=== PATIENT | female | born 1990 | race Caucasian/White ===

== ENCOUNTER 2016-09-27 20:57 | Emergency (ER) | payer BC ==
--- NOTE | 2016-09-27 21:12 | EDM.PDOC ---
ED HPI GENERAL MEDICAL PROBLEM - General Chief Complaint: ENT Problem Stated Complaint: SORE THROAT Time Seen by Provider: 09/27/16 21:02 - History of Present Illness INITIAL COMMENTS - FREE TEXT/NARRATIVE: HISTORY AND PHYSICAL: History of present illness: The patient is a healthy 26-year-old female who presents with a 2 day history of a sore throat. She says that her child has been ill and she is concerned she may have gotten something from the child. She has not had fevers vomiting or diarrhea but has had some nausea. She doesn't have any cough runny nose ear pain but feels like her ear is a somewhat plugged up. She is able to eat and drink and speak but says that there is some discomfort with that. She's been hydrating. She has no neck pain or swollen glands. Review of systems: As per history of present illness and below otherwise all systems reviewed and negative. Past medical history: As per history of present illness and as reviewed below otherwise noncontributory. Surgical history: As per history of present illness and as reviewed below otherwise noncontributory. Social history: No reported history of drug or alcohol abuse. Family history: As per history of present illness and as reviewed below otherwise noncontributory. Physical exam: Gen.: Well-developed well-nourished female who is speaking clearly without hoarse or muffled voice and vital signs of the note by me HEENT: Atraumatic, normocephalic, pupils reactive, negative for conjunctival pallor or scleral icterus, mucous membranes moist, throat clear, neck supple, nontender, trachea midline. There Is no cervical adenopathy or nuchal rigidity. The tonsils are mildly enlarged with some erythema but no exudates are seen and the uvula is midline. TMs show dullness on the right without bulging or redness and a normal TM on the left. Lungs: Clear to auscultation, breath sounds equal bilaterally, chest nontender. Heart: S1S2, regular rate and rhythm no overt murmurs Abdomen: Soft, nondistended, nontender. NABS. Negative for costovertebral tenderness. Pelvis: Deferred Genitourinary: Deferred. Rectal: Deferred. Extremities: Atraumatic, negative for cords or calf pain. Neurovascular unremarkable. Neuro: Awake, alert, oriented. Cranial nerves II through XII unremarkable. Cerebellum unremarkable. Motor and sensory unremarkable throughout. Exam nonfocal. Diagnostics: Rapid strep Therapeutics: Impression: Strep pharyngitis Definitive disposition and diagnosis as appropriate pending reevaluation and review of above. Head Pain Score (Numeric/FACES): 6 - Related Data Allergies Allergy/AdvReac Type Severity Reaction Status Date / Time No Known Allergies Allergy Verified 06/22/14 06:50 Home Meds: Home Meds . [No Known Home Meds] 11/03/14 [History] Past Medical History - Past Health History Medical/Surgical History: Denies Medical/Surgical History - Past Surgical History Other HEENT Surgeries/Procedures: wisdom teeth removed Social & Family History - Tobacco Use Smoking Status *Q: Former Smoker Years of Tobacco use: 7 Used Tobacco, but Quit: No Month Tobacco Last Used: september 2013 Second Hand Smoke Exposure: No - Alcohol Use Days Per Week of Alcohol Use: 0 - Recreational Drug Use Recreational Drug Use: No Drug Use in Last 12 Months: No ED ROS GENERAL - Review of Systems Review Of Systems: ROS reveals no pertinent complaints other than HPI. ED EXAM, GENERAL - Physical Exam Exam: See Below (see Dictation) Course - Vital Signs Last Recorded V/S: Last Vital Signs Temp 37.4 C 09/27/16 21:20 Pulse 98 09/27/16 21:20 Resp 16 09/27/16 21:20 BP 114/76 09/27/16 21:20 Pulse Ox 98 09/27/16 21:20 Departure - Departure Time of Disposition: 22:01 Disposition: Home, Self-Care 01 Condition: Good Clinical Impression: Strep pharyngitis - Discharge Information Forms: ED Department Discharge Additional Instructions: The following information is given to patients seen in the emergency department who are being discharged to home. This information is to outline your options for follow-up care. We provide all patients seen in our emergency department with a follow-up referral. The need for follow-up, as well as the timing and circumstances, are variable depending upon the specifics of your emergency department visit. If you don't have a primary care physician on staff, we will provide you with a referral. We always advise you to contact your personal physician following an emergency department visit to inform them of the circumstance of the visit and for follow-up with them and/or the need for any referrals to a consulting specialist. The emergency department will also refer you to a specialist when appropriate. This referral assures that you have the opportunity for followup care with a specialist. All of these measure are taken in an effort to provide you with optimal care, which includes your followup. Under all circumstances we always encourage you to contact your private physician who remains a resource for coordinating your care. When calling for followup care, please make the office aware that this follow-up is from your recent emergency room visit. If for any reason you are refused follow-up, please contact the [facility] emergency department at and ask to speak to the emergency department charge nurse. [facility] Primary care- Internal Medicine and Family [address] [id number] Please take antibiotics as directed until they are finished. Push hydration and use [id number] medications for pain and fevers. Call and follow-up in the clinic for reevaluation and further care and return here as needed and as discussed You have been prescribed amoxicillin from [facility]
[2016-09-27 21:25] VITALS: BP 114/76
== END 2016-09-27 22:35 | disposition home or self-care (01) ==
LOC: MW.ED 20:57
DX: J02.0 Streptococcal pharyngitis (principal); Z87.891 Personal history of nicotine dependence
CPT/HCPCS: 87880; 99282; 99283

== ENCOUNTER 2017-06-18 02:36 | Inpatient (IN) | payer BC ==
[2017-06-18] MEDS ORDERED: Tranexamic Acid 1,000 MG in Sodium Chloride 0.9% 100 ML IV PRN (02:37)
[2017-06-18] MEDS ORDERED: Misoprostol 200 MCG Tab PO PRN (02:37)
[2017-06-18] MEDS ORDERED: Carboprost Tromethamine 250 MCG/1 ML Amp IM PRN (02:37)
[2017-06-18] MEDS ORDERED: Sodium Chloride 0.9% 10 ML Syringe FLUSH PRN (02:37)
[2017-06-18] MEDS ORDERED: Butorphanol 1 MG/ML SDV IVPUSH PRN (02:37)
[2017-06-18] MEDS ORDERED: Nalbuphine 10 MG/1 ML Vial IVPUSH PRN (02:37)
[2017-06-18] MEDS ORDERED: Methylergonovine 0.2 MG/1 ML Amp IM PRN ×2 (02:37→14:15)
[2017-06-18] MEDS ORDERED: Lidocaine 1% 50 ML MDV INJECT PRN (02:37)
[2017-06-18] MEDS ORDERED: Water For Irrigation,Sterile 1,000 ML Container IRR PRN (02:37)
[2017-06-18] MEDS ORDERED: Sodium Chloride 0.9% 2.5 ML Syringe FLUSH PRN (02:37)
[2017-06-18] MEDS ORDERED: Oxytocin/0.9 % Sodium Chloride 30 UNIT/500 ML BAG IV SCH ×2 (02:45→12:15)
[2017-06-18] MEDS: Lactated Ringers 1,000 ML IV SCH ×2 (02:50→04:15)
--- NOTE | 2017-06-18 04:05 | PCM.PREANE ---
Preanesthetic Assessment - Anesthesia/Transfusion/Family Hx Anesthesia History: Prior Anesthesia Without Reaction Family History of Anesthesia Reaction: No - Physical Assessment Height: 1.65 m Weight: 80.739 kg - Lab Values: Laboratory Last Values WBC 11.70 K/uL (4.0-11.0) H 06/18/17 02:46 RBC 4.33 M/uL (4.30-5.90) 06/18/17 02:46 Hgb 12.6 g/dL (12.0-16.0) 06/18/17 02:46 Hct 37.8 % (36.0-46.0) 06/18/17 02:46 MCV 87.3 fL (80.0-98.0) 06/18/17 02:46 MCH 29.1 pg (27.0-32.0) 06/18/17 02:46 MCHC 33.3 g/dL (31.0-37.0) 06/18/17 02:46 RDW Std Deviation 39.7 fl (28.0-62.0) 06/18/17 02:46 RDW Coeff of Niki 13 % (11.0-15.0) 06/18/17 02:46 Plt Count 233 K/uL (150-400) 06/18/17 02:46 MPV 10.10 fL (7.40-12.00) 06/18/17 02:46 INR 0.90 06/18/17 02:46 Fibrinogen 454 mg/dL (215-411) H 06/18/17 02:46 Blood Type O POSITIVE 06/18/17 02:46 Antibody Screen NEGATIVE 06/18/17 02:46 - Allergies Allergies/Adverse Reactions: Allergies Allergy/AdvReac Type Severity Reaction Status Date / Time No Known Allergies Allergy Verified 04/15/17 06:42 - Acknowledgements Anesthesia Type Planned: Epidural Pt an Appropriate Candidate for the Planned Anesthesia: Yes Alternatives and Risks of Anesthesia Discussed w Pt/Guardian: Yes Pt/Guardian Understands and Agrees with Anesthesia Plan: Yes PreAnesthesia Questionnaire - Past Health History Medical/Surgical History: Denies Medical/Surgical History 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 [No Known Home Meds] 11/03/14 [History] - CURRENT (IN HOUSE) MEDS Current Meds: Current Medications Butorphanol Tartrate (Stadol) 1 mg IVPUSH Q1H PRN PRN Reason: Pain Carboprost Tromethamine (Hemabate Ds) 250 mcg IM ASDIRECTED PRN PRN Reason: Post Hemorrhage Lactated Ringer's (Ringers, Lactated) 1,000 mls @ 150 mls/hr IV ASDIRECTED [facility] Last Admin: 06/18/17 02:50 Dose: 150 mls/hr Oxytocin/Sodium Chloride (Oxytocin 30 Unit/500 Ml-Ns) 30 unit in 500 mls @ 999 mls/hr IV ASDIRECTED [facility] Tranexamic Acid 1,000 mg/ (Sodium Chloride) 110 mls @ 660 mls/hr IV ONETIME PRN PRN Reason: Bleeding Lidocaine HCl (Xylocaine 1%) 50 ml INJECT .ONCE PRN PRN Reason: Laceration repair Methylergonovine Maleate (Methergine) 0.2 mg IM ASDIRECTED PRN PRN Reason: Post Hemorrhage Misoprostol (Cytotec) 200 mcg PO .ONCE PRN PRN Reason: Post Hemorrhage Nalbuphine HCl (Nubain) 10 mg IVPUSH Q1H PRN PRN Reason: Pain (severe 7-10) Sodium Chloride (Saline Flush) 10 ml FLUSH ASDIRECTED PRN PRN Reason: Keep Vein Open Sodium Chloride (Saline Flush) 2.5 ml FLUSH ASDIRECTED PRN PRN Reason: Keep Vein Open Sterile Water (Sterile Water For Irrigation) 1,000 ml IRR ASDIRECTED PRN PRN Reason: delivery Discontinued Medications Fentanyl/Bupivacaine HCl ([id number]-Sb 2 Mcg/Ml-0.125%) Confirm Administered Dose 100 mls @ as directed APURVA GOMEZK-MED ONE Stop: 06/18/17 03:28
--- NOTE | 2017-06-18 04:10 | PCM.PRNOTE ---
- Free Text/Narrative Note: Anes Note Patient Requests Epidural for L&D. Risks and methods were discussed. Sitting Position. Level L3-4 Midline Approach. Bet prep X 3. Sterile Drape Applied/ Local 1 lido. 1 X 3 7/8 tuohy needle. Single attempt with ease, using LUIS MIGUEL technique. Cath threaded 3 cm with ease. Sterile dressing applied. test 3 cc 1.5 lido with epi neg. Load 10 cc pump solution in slow divided doses. Pump started at 8 cc/hr with 6 cc q 20 min prn bolus. Patient reports excellent analgesia. Luis Felipe Dior CRNA
[2017-06-18] MEDS ORDERED: Terbutaline 1 MG/ML SDV SUBCUT PRN (12:07)
[2017-06-18] MEDS ORDERED: Docusate Sodium 100 MG Cap PO PRN (14:15)
[2017-06-18] MEDS ORDERED: Bisacodyl 10 MG Supp RECTAL PRN (14:15)
[2017-06-18] MEDS ORDERED: Witch Hazel Medicated Pads 40/Jar TOP PRN (14:15)
[2017-06-18] MEDS ORDERED: Benzocaine/Menthol 20%-0.5% Spray 78 GM Cannister TOP PRN (14:15)
[2017-06-18] MEDS ORDERED: Lanolin 100% Cream 7 GM Tube TOP PRN (14:15)
[2017-06-18] MEDS ORDERED: Acetaminophen 500 MG Tab PO PRN ×2 (14:15)
[2017-06-18] MEDS ORDERED: Ibuprofen 400 MG Tab PO PRN (14:15)
[2017-06-18] MEDS ORDERED: oxyCODONE 5 MG Tab PO PRN (14:15)
[2017-06-18] MEDS ORDERED: hydrOXYzine Pamoate 25 MG Cap PO PRN (14:44)
[2017-06-18] MEDS: Ibuprofen 800 MG Tab PO PRN (19:33)
--- NOTE | 2017-06-18 20:20 | OR ---
SURGEON: Nafisa Vega M.D. DATE OF PROCEDURE: 06/18/2017 DELIVERY NOTE PREOPERATIVE DIAGNOSIS: 39-3/7th weeks' intrauterine , dysfunctional labor. POSTOPERATIVE DIAGNOSIS: 39-3/7th weeks' intrauterine , dysfunctional labor, and vaginal polyp PROCEDURE PERFORMED: Term Spontaneous Vaginal Delivery; Vaginal polypectomy. PROCUREMENT INTERNSHIP: AMBER Rodrigues. ANESTHESIA: Epidural. ESTIMATED BLOOD LOSS: Less than 300 mL. FINDINGS: Live-born male, score 9 and 9. Weight is pending at the time of dictation. Full delivery of the anterior shoulder, with shoulder dystocia maneuvers performed, but less than 1 minute delay in delivery. COMPLICATIONS: None known. DISPOSITION: Stable to recovery. BRIEF HISTORY: This is a 26-year-old female, G3, P2-0-0-2. She presents at 39 and 3/7th weeks' gestation, calling through the answering service, expressing that she has blood running down her legs and was told to call an ambulance. She presented to the emergency room. I met her at the hospital. She had a 3 x 5 cm area on her pad of bright red blood. She had an irregular contraction pattern. She had normal coagulation studies. She had category 1 heart tones. She admitted to taking castor oil that evening. Due to the bleeding, she was admitted. She was initially 3-4 cm dilated. Over the following 6 hours, she was observed with continued normal heart tones. Contraction pattern becoming more regular every 3-5 minutes and then every 5-8 minutes and no further bleeding observed. Ultrasound did not show any sign of abruption. She was 4 cm, 80%, -2 station and decision was made to proceed with rupture of membranes. Artificial rupture of membranes was performed with clear fluid noted. She was known to be group B strep negative. She continued with category 1 heart tones. Prior to rupture of membranes, she had received an epidural for pain control and she had slow progress over the next 2 to 3 hours to 5 cm. Therefore decision was made to proceed with Pitocin augmentation. Shortly thereafter, she progressed to complete. DESCRIPTION OF PROCEDURE: With the patient in dorsal lithotomy position, she pushed over a 12-minute time period to a 5+ station, at which time the head was delivered spontaneously and atraumatically over the perineum with support. Turtling was noted. The head was in the direct occiput anterior position. Rotated slightly to the left occiput anterior position. The shoulders did not easily deliver. Therefore, the patient was placed in the supine position. Suprapubic pressure was performed and a hand was used to rotate the anterior shoulder forward and delivered the anterior shoulder then posteriorly with subsequent delivery of the 's other shoulder and body without any difficulty. Again, the time from the delivery of the head to the delivery of shoulder was less than 1 minute. The infant was bulb suctioned by nose and mouth. The cord was clamped x2 and cut, and the was handed to the mother in the presence of the nurse attending delivery. The is a liveborn male, score 9 and 9. Weight is pending at the time of dictation. Cord blood was collected for venous cord blood sampling as well as routine cord blood sampling. Pitocin was initiated after delivery of the to assist with delivery of the placenta which was delivered spontaneously. Schultze intact with 3 vessels. Upon inspection the pelvis and perineum, there were no periurethral, vaginal sidewall, cervical, rectal, or perineal lacerations. There was redundant vaginal tissue measuring 1 x 2 cm protruding beyond the introitus. The patient requested that this be removed as she has been previously aware of it and since she has an epidural she requests that it be removed at this time. I confirmed her desire and approval, and I did elevate it, confirmed that she had good anesthesia. It was cut at the base and 2 [id number] sutures were placed for hemostasis. This was sent as a vaginal polyp specimen to Pathology. Due to the bleeding that she had, the placenta was also sent to Pathology; however, on gross examination, there was no evidence of abruption and the placenta did appear completely intact. Final sponge, needle, and instrument count were correct. There were no known complications. and mother remained in LDRP in good condition. LAISHA / GATO /[id number] MTDWojciech
--- NOTE | 2017-06-19 00:34 | PCM48HPAN ---
Post Anesthesia Note - EVALUATION WITHIN 48HRS OF ANESTHETIC Vital Signs in Normal Range: Yes Patient Participated in Evaluation: Yes Respiratory Function Stable: Yes Airway Patent: Yes Cardiovascular Function Stable: Yes Hydration Status Stable: Yes Pain Control Satisfactory: Yes Nausea and Vomiting Control Satisfactory: Yes Mental Status Recovered: Yes Resp Rate: 14
[2017-06-19] MEDS: Ibuprofen 800 MG Tab PO PRN ×2 (02:22→11:09)
[2017-06-19 07:35] VITALS: BP 111/72
--- NOTE | 2017-06-19 08:08 | PCM.PNPP ---
<Shawna Sommers - Last Filed: 06/19/17 08:43> - General Info Date of Service: 06/19/17 Admission Dx/Problem (Free Text): 39/2 dysfunctional labor. Full delivery of anterior shoulder, with shoulder dystocia maneuvers performed, but less than 1 min delay in delivery. Subjective Update: Patient is doing well. Pain is well controlled with medications. . Lochia - WNL. Tolerated food with no n/v. Urinating. No bowel movement or flatus. Ambulating. Anticipate discharge today. Functional Status: Reports: Pain Controlled, Tolerating Diet, Ambulating - Review of Systems General: Denies: Fever, Chills HEENT: Denies: Headaches Pulmonary: Denies: Shortness of Breath, Pleuritic Chest Pain Cardiovascular: Denies: Chest Pain, Palpitations, Dyspnea on Exertion, Lightheadedness Gastrointestinal: Denies: Flatus, Nausea, Vomiting - General Info Date of Service: 06/19/17 - Patient Data Vital Signs - Most Recent: Last Vital Signs Temp 36.8 C 06/19/17 07:34 Pulse 59 L 06/19/17 07:34 Resp 14 06/19/17 07:34 BP 111/72 06/19/17 07:34 Pulse Ox 97 06/19/17 07:34 Weight - Most Recent: 80.739 kg Lab Results - Last 24 Hours: Laboratory Results - last 24 hr 06/18/17 06/19/17 Range/Units 13:52 05:47 Hgb 11.4 L (12.0-16.0) g/dL Hct 34.7 L (36.0-46.0) % Cord VBG pH 7.384 (7.25-7.45) Cord VBG Base Excess -3 (-10--2) Med Orders - Current: Current Medications Acetaminophen (Tylenol Extra Strength) 500 mg PO Q4H PRN PRN Reason: Pain Acetaminophen (Tylenol Extra Strength) 1,000 mg PO Q4H PRN PRN Reason: Pain Benzocaine/Menthol (Dermoplast Pain Relief 20%-0.5% [place]) 78 gm TOP ASDIRECTED PRN PRN Reason: Perineal Comfort Measure Bisacodyl (Dulcolax) 10 mg RECTAL .ONCE PRN PRN Reason: Constipation Docusate Sodium (Colace) 100 mg PO BID PRN PRN Reason: Constipation Emollient Ointment (Lansinoh Hpa) 0 gm TOP ASDIRECTED PRN PRN Reason: Sore Nipples Hydroxyzine Pamoate (Vistaril) 25 mg PO BEDTIME PRN PRN Reason: Insomnia Ibuprofen (Motrin) 400 mg PO Q4H PRN PRN Reason: Pain Ibuprofen (Motrin) 800 mg PO Q6H PRN PRN Reason: Pain Last Admin: 06/19/17 02:22 Dose: 800 mg Methylergonovine Maleate (Methergine) 0.2 mg IM .ONCE PRN PRN Reason: Excessive Vaginal Bleeding Oxycodone HCl (Oxycodone) 5 mg PO Q2H PRN PRN Reason: Pain Last Admin: 06/19/17 02:22 Dose: 5 mg Witch Allyson (Tucks) 1 pad TOP ASDIRECTED PRN PRN Reason: comfort care Discontinued Medications Butorphanol Tartrate (Stadol) 1 mg IVPUSH Q1H PRN PRN Reason: Pain Carboprost Tromethamine (Hemabate Ds) 250 mcg IM ASDIRECTED PRN PRN Reason: Post Hemorrhage Lactated Ringer's (Ringers, Lactated) 1,000 mls @ 150 mls/hr IV ASDIRECTED COUNTS INCLUDE 234 BEDS AT THE [facility] Last Admin: 06/18/17 04:15 Dose: 150 mls/hr Oxytocin/Sodium Chloride (Oxytocin 30 Unit/500 Ml-Ns) 30 unit in 500 mls @ 999 mls/hr IV ASDIRECTED COUNTS INCLUDE 234 BEDS AT THE [facility] Tranexamic Acid 1,000 mg/ (Sodium Chloride) 110 mls @ 660 mls/hr IV ONETIME PRN PRN Reason: Bleeding Fentanyl/Bupivacaine HCl (Mhxnmjyx-Chehe-Qy 2 Mcg/Ml-0.125%) Confirm Administered Dose 100 mls @ as directed EP .STK-MED ONE Stop: 06/18/17 03:28 Oxytocin/Sodium Chloride (Oxytocin 30 Unit/500 Ml-Ns) 30 unit in 500 mls @ 2 mls/hr IV TITRATE COUNTS INCLUDE 234 BEDS AT THE [facility]; Protocol Last Titration: 06/18/17 13:55 Dose: 500 munits/min, 500 mls/hr Lidocaine HCl (Xylocaine 1%) 50 ml INJECT .ONCE PRN PRN Reason: Laceration repair Methylergonovine Maleate (Methergine) 0.2 mg IM ASDIRECTED PRN PRN Reason: Post Hemorrhage Misoprostol (Cytotec) 200 mcg PO .ONCE PRN PRN Reason: Post Hemorrhage Nalbuphine HCl (Nubain) 10 mg IVPUSH Q1H PRN PRN Reason: Pain (severe 7-10) Sodium Chloride (Saline Flush) 10 ml FLUSH ASDIRECTED PRN PRN Reason: Keep Vein Open Sodium Chloride (Saline Flush) 2.5 ml FLUSH ASDIRECTED PRN PRN Reason: Keep Vein Open Sterile Water (Sterile Water For Irrigation) 1,000 ml IRR ASDIRECTED PRN PRN Reason: delivery Terbutaline Sulfate (Brethine) 0.25 mg SUBCUT ASDIRECTED PRN PRN Reason: Tacysystole - Interaction Disposition, : Delight in Room with Family Infant Interaction: Holding Infant Feeding: Attempted ; Nursed Fair/Poor, Breastfed ; Nursed Well Support Person: - Recovery Exam Fundal Tone: Firm Fundal Level: 2 Fingerbreadths Below Umbilicus Fundal Placement: Midline Lochia Amount: Scant Lochia Color: Rubra/Red Episiotomy/Laceration: None Bladder Status: Voiding Urinary Elimination: Voided - Exam General: Alert, Oriented, No Acute Distress Lungs: Clear to Auscultation, Normal Respiratory Effort Cardiovascular: Regular Rate, Regular Rhythm GI/Abdominal Exam: Soft, Non-Tender Extremities: Pedal Edema (Trace) Skin: Warm, Dry Psy/Mental Status: Alert - Problem List & Annotations (1) Vaginal delivery SNOMED Code(s): 963412135 Code(s): O80 - ENCOUNTER FOR FULL-TERM UNCOMPLICATED DELIVERY Status: Acute Current Visit: No - Assessment Assessment:: 39/3 dysfunctional labor. PPD #1. Stable. Discharge today. - Plan Plan:: Reviewed discharge instructions. Continue PNV while . Pelvic rest for 6 weeks. Call if fever greater than 101 or bleeding through a heavy pad in an hour. Has a history of depression - reviewed post- depression symptoms. Follow-up appointment in 6 weeks. <Nafisa Vega - Last Filed: 06/19/17 11:01> - Patient Data Vital Signs - Most Recent: Last Vital Signs Temp 36.8 C 06/19/17 07:34 Pulse 59 L 06/19/17 07:34 Resp 14 06/19/17 07:34 BP 111/72 06/19/17 07:34 Pulse Ox 97 06/19/17 07:34 Lab Results - Last 24 Hours: Laboratory Results - last 24 hr 06/18/17 06/19/17 Range/Units 13:52 05:47 Hgb 11.4 L (12.0-16.0) g/dL Hct 34.7 L (36.0-46.0) % Cord VBG pH 7.384 (7.25-7.45) Cord VBG Base Excess -3 (-10--2) Med Orders - Current: Current Medications Acetaminophen (Tylenol Extra Strength) 500 mg PO Q4H PRN PRN Reason: Pain Acetaminophen (Tylenol Extra Strength) 1,000 mg PO Q4H PRN PRN Reason: Pain Benzocaine/Menthol (Dermoplast Pain Relief 20%-0.5% [place]) 78 gm TOP ASDIRECTED PRN PRN Reason: Perineal Comfort Measure Bisacodyl (Dulcolax) 10 mg RECTAL .ONCE PRN PRN Reason: Constipation Docusate Sodium (Colace) 100 mg PO BID PRN PRN Reason: Constipation Emollient Ointment (Lansinoh Hpa) 0 gm TOP ASDIRECTED PRN PRN Reason: Sore Nipples Hydroxyzine Pamoate (Vistaril) 25 mg PO BEDTIME PRN PRN Reason: Insomnia Ibuprofen (Motrin) 400 mg PO Q4H PRN PRN Reason: Pain Ibuprofen (Motrin) 800 mg PO Q6H PRN PRN Reason: Pain Last Admin: 06/19/17 02:22 Dose: 800 mg Methylergonovine Maleate (Methergine) 0.2 mg IM .ONCE PRN PRN Reason: Excessive Vaginal Bleeding Oxycodone HCl (Oxycodone) 5 mg PO Q2H PRN PRN Reason: Pain Last Admin: 06/19/17 02:22 Dose: 5 mg Witch Allyson (Tucks) 1 pad TOP ASDIRECTED PRN PRN Reason: comfort care Discontinued Medications Butorphanol Tartrate (Stadol) 1 mg IVPUSH Q1H PRN PRN Reason: Pain Carboprost Tromethamine (Hemabate Ds) 250 mcg IM ASDIRECTED PRN PRN Reason: Post Hemorrhage Lactated Ringer's (Ringers, Lactated) 1,000 mls @ 150 mls/hr IV ASDIRECTED COUNTS INCLUDE 234 BEDS AT THE [facility] Last Admin: 06/18/17 04:15 Dose: 150 mls/hr Oxytocin/Sodium Chloride (Oxytocin 30 Unit/500 Ml-Ns) 30 unit in 500 mls @ 999 mls/hr IV ASDIRECTED TELLO Tranexamic Acid 1,000 mg/ (Sodium Chloride) 110 mls @ 660 mls/hr IV ONETIME PRN PRN Reason: Bleeding Fentanyl/Bupivacaine HCl (Zmouilap-Efqyo-Uv 2 Mcg/Ml-0.125%) Confirm Administered Dose 100 mls @ as directed EP .STK-MED ONE Stop: 06/18/17 03:28 Oxytocin/Sodium Chloride (Oxytocin 30 Unit/500 Ml-Ns) 30 unit in 500 mls @ 2 mls/hr IV TITRATE TELLO; Protocol Last Titration: 06/18/17 13:55 Dose: 500 munits/min, 500 mls/hr Lidocaine HCl (Xylocaine 1%) 50 ml INJECT .ONCE PRN PRN Reason: Laceration repair Methylergonovine Maleate (Methergine) 0.2 mg IM ASDIRECTED PRN PRN Reason: Post Hemorrhage Misoprostol (Cytotec) 200 mcg PO .ONCE PRN PRN Reason: Post Hemorrhage Nalbuphine HCl (Nubain) 10 mg IVPUSH Q1H PRN PRN Reason: Pain (severe 7-10) Sodium Chloride (Saline Flush) 10 ml FLUSH ASDIRECTED PRN PRN Reason: Keep Vein Open Sodium Chloride (Saline Flush) 2.5 ml FLUSH ASDIRECTED PRN PRN Reason: Keep Vein Open Sterile Water (Sterile Water For Irrigation) 1,000 ml IRR ASDIRECTED PRN PRN Reason: delivery Terbutaline Sulfate (Brethine) 0.25 mg SUBCUT ASDIRECTED PRN PRN Reason: Tacysystole - Problem List Review Problem List Initiated/Reviewed/Updated: Yes - My Orders Last 24 Hours: My Active Orders 06/18/17 12:07 Bedrest Bathroom Privileges [RC] ASDIRECTED Communication Order [RC] ASDIRECTED Communication Order [RC] ASDIRECTED Notify Provider [RC] PRN Oxygen Therapy [RC] ASDIRECTED Vaginal Exam [RC] PRN Vital Signs [RC] PER UNIT ROUTINE 06/18/17 14:15 Patient Status [ADT] Routine May Shower [RC] ASDIRECTED Up ad Lea [RC] ASDIRECTED Vital Signs [RC] PER UNIT ROUTINE Acetaminophen [Tylenol Extra Strength] 1,000 mg PO Q4H PRN Acetaminophen [Tylenol Extra Strength] 500 mg PO Q4H PRN Benzocaine/Menthol [Dermoplast Pain Relief 20%-0.5% [place]] 78 gm TOP ASDIRECTED PRN Bisacodyl [Dulcolax] 10 mg RECTAL .ONCE PRN Docusate Sodium [Colace] 100 mg PO BID PRN Ibuprofen [Motrin] 400 mg PO Q4H PRN Ibuprofen [Motrin] 800 mg PO Q6H PRN Lanolin [Lansinoh HPA] See Dose Instructions TOP ASDIRECTED PRN Methylergonovine [Methergine] 0.2 mg IM .ONCE PRN Witch Allyson [Tucks] 1 pad TOP ASDIRECTED PRN oxyCODONE 5 mg PO Q2H PRN Assess Lochia [WOMSER] Per Unit Routine Assess Uterine Involution [WOMSER] Per Unit Routine Peripheral IV Discontinue [OM.PC] Routine Resuscitation Status Routine 06/18/17 14:16 Perineal Care [OM.PC] Per Unit Routine 06/18/17 14:44 hydrOXYzine Pamoate [Vistaril] 25 mg PO BEDTIME PRN 06/18/17 Dinner Regular Diet [DIET] - Plan Plan:: patient was seen and examined by me. She is stable for discharge, discharge instructions reviewed. Due to history of depression and some symptoms during , she would like to start on antidepressant. She has previously been on Prozac, but also tried lexapro during , but it made her sick-- she would be willing to try it again, now that she is not . Discussed that antidepressant is passed into the breastmilk, general no negative effect on baby , but she should monitor for drowsiness in new born.
--- NOTE | 2017-06-20 10:22 | US ---
EXAM DATE: 06/18/17 PATIENT'S AGE: 26 Patient: SHADY ROSALES Facility: [place], [place] Site . Site : 1990 Study: US OB Pelvis [id number]/[id number] 8:56:46 AM Ordering Physician: Gary Skelton Final Report: INDICATION: Vaginal bleeding evaluate for abruption TECHNIQUE: Real-time valdivia-scale imaging of the pelvis was performed. FINDINGS: Sonographic imaging demonstrates a single living intrauterine gestation. The embryo demonstrates a regular cardiac rate measuring 139 beats per minute. presentation is vertex. Placenta posterior. No retroplacental hematoma. No findings for hemorrhage IMPRESSION: Single live intrauterine gestation. Posterior placenta. No findings for abruption. Dictated by Sapna Horn MD @ Jun 18 2017 9:12AM (Electronic Signature) Report Signed by Proxy. MARIELOS
== END 2017-06-19 17:30 | disposition home or self-care (01) | DRG 560 ==
LOC: MW.OBCHECK 02:36 → MW.OB 02:37 → MW.OBCHECK 02:37 → MW.OB 02:38 → OBSVTOIN 13:52 → MW.OB 17:00
PROVIDERS: ADMIT Obstetrics & Gynecology; ATTEND Obstetrics & Gynecology
PROC: 10E0XZZ Delivery of Products of Conception, External Approach (ICD-10-PCS; principal; 2017-06-18)
PROC: 10907ZC Drainage of Amniotic Fluid, Therapeutic from Products of Conception, Via Natural or Artificial Opening (ICD-10-PCS; 2017-06-18)
PROC: 0UBG7ZZ Excision of Vagina, Via Natural or Artificial Opening (ICD-10-PCS; 2017-06-18)
DX: O67.9 Intrapartum hemorrhage, unspecified (principal); O66.0 Obstructed labor due to shoulder dystocia; O99.344 Other mental disorders complicating childbirth; N84.2 Polyp of vagina; Z3A.39 39 weeks gestation of pregnancy; Z37.0 Single live birth
CPT/HCPCS: 36415; 51702; 59025; 59409; 76815; 76815-26; 81003; 82803; 85014; 85018; 85027; 85384; 85610; 86850; 86900; 86901; A9270-GY; J2590; J7120

== ENCOUNTER 2017-10-17 23:26 | Emergency (ER) | payer BC ==
[2017-10-17 23:38] VITALS: BP 131/81
--- NOTE | 2017-10-17 23:49 | EDM.PDOC ---
ED HPI GENERAL MEDICAL PROBLEM - General Chief Complaint: General Stated Complaint: NUMBNESS TO THE RT SIDE OF BODY Time Seen by Provider: 10/17/17 23:47 - History of Present Illness INITIAL COMMENTS - FREE TEXT/NARRATIVE: HISTORY AND PHYSICAL: History of present illness: Patient's 27 year old female with history of anxiety who stopped her Lexapro 5 days prior presents with a concern of paresthesia to her right side and possible anxiety attack she denies any other neurological signs or symptoms is otherwise healthy. She reports no other chronic medical problems but is Review of systems: As per history of present illness and below otherwise all systems reviewed and negative. Past medical history: As per history of present illness and as reviewed below otherwise noncontributory. Surgical history: As per history of present illness and as reviewed below otherwise noncontributory. Social history: No reported history of drug or alcohol abuse. Family history: As per history of present illness and as reviewed below otherwise noncontributory. Physical exam: HEENT: Atraumatic, normocephalic, pupils reactive, negative for conjunctival pallor or scleral icterus, mucous membranes moist, throat clear, neck supple, nontender, trachea midline. Lungs: Clear to auscultation, breath sounds equal bilaterally, chest nontender. Heart: S1S2, regular, negative for clicks, rubs, or JVD. Abdomen: Soft, nondistended, nontender. Negative for masses or hepatosplenomegaly. Negative for costovertebral tenderness. Pelvis: Stable nontender. Genitourinary: Deferred. Rectal: Deferred. Extremities: Atraumatic, negative for cords or calf pain. Neurovascular unremarkable. Neuro: Awake, alert, oriented. Cranial nerves II through XII unremarkable. Cerebellum unremarkable. Motor and sensory unremarkable throughout. Exam nonfocal. Diagnostics: None Therapeutics: None Impression: #1 medical screening exam #2 history of anxiety Definitive disposition and diagnosis as appropriate pending reevaluation and review of above. denies pain Pain Score (Numeric/FACES): 0 - Related Data Allergies Allergy/AdvReac Type Severity Reaction Status Date / Time No Known Allergies Allergy Verified 10/17/17 23:35 Home Meds: Home Meds . 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: Musculoskeletal History: Reports: None Neurological History: Reports: None Psychiatric History: Reports: Anxiety, Depression Endocrine/Metabolic History: Reports: None Hematologic History: Reports: None Immunologic History: Reports: None Oncologic (Cancer) History: Reports: None Dermatologic History: Reports: None - Infectious Disease History Infectious Disease History: Reports: None - Past Surgical History Head Surgeries/Procedures: Reports: None HEENT Surgical History: Reports: Oral Surgery Social & Family History - Tobacco Use Smoking Status *Q: Current Every Day Smoker Years of Tobacco use: 10 Packs/Tins Daily: 0.5 - Caffeine Use Caffeine Use: Reports: Coffee - Recreational Drug Use Recreational Drug Use: No ED ROS GENERAL - Review of Systems Review Of Systems: ROS reveals no pertinent complaints other than HPI. ED EXAM, GENERAL - Physical Exam Exam: See Below (See dictation) Course - Vital Signs Last Recorded V/S: Last Vital Signs Temp 36.1 C 10/17/17 23:35 Pulse 83 10/17/17 23:35 Resp 18 10/17/17 23:35 BP 131/81 10/17/17 23:35 Pulse Ox 98 10/17/17 23:35 Departure - Departure Time of Disposition: 23:48 Disposition: Home, Self-Care 01 Condition: Good Clinical Impression: Encounter for medical screening examination, History of anxiety - Discharge Information *PRESCRIPTION DRUG MONITORING PROGRAM REVIEWED*: Not Applicable *COPY OF PRESCRIPTION DRUG MONITORING REPORT IN PATIENT HONG: Not Applicable Additional Instructions: The following information is given to patients seen in the emergency department who are being discharged to home. This information is to outline your options for follow-up care. We provide all patients seen in our emergency department with a follow-up referral. The need for follow-up, as well as the timing and circumstances, are variable depending upon the specifics of your emergency department visit. If you don't have a primary care physician on staff, we will provide you with a referral. We always advise you to contact your personal physician following an emergency department visit to inform them of the circumstance of the visit and for follow-up with them and/or the need for any referrals to a consulting specialist. The emergency department will also refer you to a specialist when appropriate. This referral assures that you have the opportunity for followup care with a specialist. All of these measure are taken in an effort to provide you with optimal care, which includes your followup. Under all circumstances we always encourage you to contact your private physician who remains a resource for coordinating your care. When calling for followup care, please make the office aware that this follow-up is from your recent emergency room visit. If for any reason you are refused follow-up, please contact the [facility] emergency department at and asked to speak to the emergency department charge nurse. Follow-up primary medical doctor/SURVEY OPERATIONS DIRECTOR as needed as discussed return as needed
== END 2017-10-17 23:59 | disposition home or self-care (01) ==
LOC: MW.ED 23:26
DX: Z13.9 Encounter for screening, unspecified (principal); F17.210 Nicotine dependence, cigarettes, uncomplicated; F41.9 Anxiety disorder, unspecified
CPT/HCPCS: 99282

== ENCOUNTER 2019-02-16 19:43 | Emergency (ER) | payer BC ==
--- NOTE | 2019-02-16 20:16 | EDM.PDOC ---
ED HPI GENERAL MEDICAL PROBLEM - General Chief Complaint: Abdominal Pain Stated Complaint: ABDOMINAL PAIN Time Seen by Provider: 02/16/19 20:16 Source of Information: Reports: Patient History Limitations: Reports: No Limitations - History of Present Illness INITIAL COMMENTS - FREE TEXT/NARRATIVE: HISTORY AND PHYSICAL: History of present illness: patient is a 28-year-old female presents to the ED with complaint of right lower quadrant pain.She states the pain started this morning she woke up and has progressively gotten worse. She denies fevers, chills, nausea, vomiting, back pain, diarrhea, hematuria, dysuria. She does have some pressure in her lower abdomen with urination. She denies significant past medical or surgical history. Review of systems: As per history of present illness and below otherwise all systems reviewed and negative. Past medical history: As per history of present illness and as reviewed below otherwise noncontributory. Surgical history: As per history of present illness and as reviewed below otherwise noncontributory. Social history: No reported history of drug or alcohol abuse. Family history: As per history of present illness and as reviewed below otherwise noncontributory. Physical exam: General: Patient sitting comfortably in no acute distress and nontoxic appearing HEENT: Atraumatic, normocephalic, pupils reactive, negative for conjunctival pallor or scleral icterus, mucous membranes moist, throat clear, neck supple, nontender, trachea midline. No meningeal signs. Lungs: Clear to auscultation, breath sounds equal bilaterally, chest nontender. Heart: S1S2, regular, negative for clicks, rubs, or overt murmur. Abdomen: Mild right lower quadrant tenderness to palaption. Soft, nondistended. Negative for masses or hepatosplenomegaly. Negative for costovertebral tenderness. No rigidity, rebound, guarding. Pelvis: Stable nontender. Genitourinary: Deferred. Rectal: Deferred. Extremities: Atraumatic, negative for cords or calf pain. Neurovascular unremarkable. Neuro: Awake, alert, oriented. Cranial nerves II through XII unremarkable. Cerebellum unremarkable. Motor and sensory unremarkable throughout. Exam nonfocal. Notes: Diagnostics: UA, urine hcg, CBC, CMP Therapeutics: none Prescriptions: none Impression: abdominal pain Definitive disposition and diagnosis as appropriate pending reevaluation and review of above. Right Lower Abdomen Pain Score (Numeric/FACES): 7 - Related Data Allergies Allergy/AdvReac Type Severity Reaction Status Date / Time No Known Allergies Allergy Verified 02/16/19 20:00 Home Meds: Home Meds . [No Known Home Meds] 02/16/19 [History] Past Medical History - Past Health History Medical/Surgical History: Denies Medical/Surgical History HEENT History: Reports: None Cardiovascular History: Reports: None Respiratory History: Reports: None Gastrointestinal History: Reports: None Genitourinary History: Reports: None MANAGER PHILOSOPHY History: Reports: Other MANAGER PHILOSOPHY History: LMP 01/29/19 Musculoskeletal History: Reports: None Neurological History: Reports: None Psychiatric History: Reports: Anxiety, Depression Endocrine/Metabolic History: Reports: None Hematologic History: Reports: None Immunologic History: Reports: None Oncologic (Cancer) History: Reports: None Dermatologic History: Reports: None - Infectious Disease History Infectious Disease History: Reports: None - Past Surgical History Head Surgeries/Procedures: Reports: None HEENT Surgical History: Reports: Oral Surgery Social & Family History - Family History Family Medical History: Noncontributory - Tobacco Use Smoking Status *Q: Current Every Day Smoker Years of Tobacco use: 12 Packs/Tins Daily: 0.2 - Caffeine Use Caffeine Use: Reports: Coffee - Recreational Drug Use Recreational Drug Use: No ED ROS GENERAL - Review of Systems Review Of Systems: Comprehensive ROS is negative, except as noted in HPI. ED EXAM, RENAL/ - Physical Exam Exam: See Below (see dictation) Course - Vital Signs Last Recorded V/S: Last Vital Signs Temp 96.8 F 02/16/19 19:55 Pulse 100 02/16/19 19:55 Resp 16 02/16/19 19:55 BP 125/81 02/16/19 19:55 Pulse Ox 100 02/16/19 19:55 - Orders/Labs/Meds Labs: Laboratory Tests 02/16/19 02/16/19 02/16/19 Range/Units 19:53 19:53 20:25 WBC 10.61 (4.0-11.0) K/uL RBC 4.48 (4.30-5.90) M/uL Hgb 12.9 (12.0-16.0) g/dL Hct 38.4 (36.0-46.0) % MCV 85.7 (80.0-98.0) fL MCH 28.8 (27.0-32.0) pg MCHC 33.6 (31.0-37.0) g/dL RDW Std Deviation 41.5 (28.0-62.0) fl RDW Coeff of Niki 13 (11.0-15.0) % Plt Count 290 (150-400) K/uL MPV 9.20 (7.40-12.00) fL Neut % (Auto) 62.2 (48.0-80.0) % Lymph % (Auto) 27.2 (16.0-40.0) % Porter % (Auto) 8.9 (0.0-15.0) % Eos % (Auto) 1.4 (0.0-7.0) % Baso % (Auto) 0.3 (0.0-1.5) % Neut # (Auto) 6.6 H (1.4-5.7) K/uL Lymph # (Auto) 2.9 H (0.6-2.4) K/uL Porter # (Auto) 0.9 H (0.0-0.8) K/uL Eos # (Auto) 0.2 (0.0-0.7) K/uL Baso # (Auto) 0.0 (0.0-0.1) K/uL Nucleated RBC % 0.0 /100WBC Nucleated RBCs # 0 K/uL Sodium (136-145) mmol/L Potassium (3.5-5.1) mmol/L Chloride (98-107) mmol/L Carbon Dioxide (21.0-32.0) mmol/L BUN (7.0-18.0) mg/dL Creatinine (0.6-1.0) mg/dL Est Cr Clr Drug Dosing mL/min Estimated GFR (MDRD) ml/min Glucose (74-106) mg/dL Calcium (8.5-10.1) mg/dL Total Bilirubin (0.2-1.0) mg/dL AST (15-37) IU/L ALT (14-63) IU/L Alkaline Phosphatase (46-116) U/L Total Protein (6.4-8.2) g/dL Albumin (3.4-5.0) g/dL Globulin (2.6-4.0) g/dL Albumin/Globulin Ratio (0.9-1.6) Urine Color YELLOW Urine Appearance CLEAR Urine pH 7.0 (5.0-8.0) Ur Specific [place] 1.020 (1.001-1.035) Urine Protein NEGATIVE (NEGATIVE) mg/dL Urine Glucose (UA) NEGATIVE (NEGATIVE) mg/dL Urine Ketones TRACE H (NEGATIVE) mg/dL Urine Occult Blood NEGATIVE (NEGATIVE) Urine Nitrite NEGATIVE (NEGATIVE) Urine Bilirubin NEGATIVE (NEGATIVE) Urine Urobilinogen 0.2 (<2.0) EU/dL Ur Leukocyte Esterase NEGATIVE (NEGATIVE) Urine HCG, Qual NEGATIVE (NEGATIVE) 02/16/19 Range/Units 20:25 WBC (4.0-11.0) K/uL RBC (4.30-5.90) M/uL Hgb (12.0-16.0) g/dL Hct (36.0-46.0) % MCV (80.0-98.0) fL MCH (27.0-32.0) pg MCHC (31.0-37.0) g/dL RDW Std Deviation (28.0-62.0) fl RDW Coeff of Niki (11.0-15.0) % Plt Count (150-400) K/uL MPV (7.40-12.00) fL Neut % (Auto) (48.0-80.0) % Lymph % (Auto) (16.0-40.0) % Porter % (Auto) (0.0-15.0) % Eos % (Auto) (0.0-7.0) % Baso % (Auto) (0.0-1.5) % Neut # (Auto) (1.4-5.7) K/uL Lymph # (Auto) (0.6-2.4) K/uL Porter # (Auto) (0.0-0.8) K/uL Eos # (Auto) (0.0-0.7) K/uL Baso # (Auto) (0.0-0.1) K/uL Nucleated RBC % /100WBC Nucleated RBCs # K/uL Sodium 141 (136-145) mmol/L Potassium 3.9 (3.5-5.1) mmol/L Chloride 105 (98-107) mmol/L Carbon Dioxide 26.7 (21.0-32.0) mmol/L BUN 13 (7.0-18.0) mg/dL Creatinine 0.8 (0.6-1.0) mg/dL Est Cr Clr Drug Dosing 91.21 mL/min Estimated GFR (MDRD) > 60.0 ml/min Glucose 130 H (74-106) mg/dL Calcium 9.0 (8.5-10.1) mg/dL Total Bilirubin 0.1 L (0.2-1.0) mg/dL AST 19 (15-37) IU/L ALT 27 (14-63) IU/L Alkaline Phosphatase 59 (46-116) U/L Total Protein 7.1 (6.4-8.2) g/dL Albumin 3.8 (3.4-5.0) g/dL Globulin 3.3 (2.6-4.0) g/dL Albumin/Globulin Ratio 1.2 (0.9-1.6) Urine Color Urine Appearance Urine pH (5.0-8.0) Ur Specific [place] (1.001-1.035) Urine Protein (NEGATIVE) mg/dL Urine Glucose (UA) (NEGATIVE) mg/dL Urine Ketones (NEGATIVE) mg/dL Urine Occult Blood (NEGATIVE) Urine Nitrite (NEGATIVE) Urine Bilirubin (NEGATIVE) Urine Urobilinogen (<2.0) EU/dL Ur Leukocyte Esterase (NEGATIVE) Urine HCG, Qual (NEGATIVE) Departure - Departure Time of Disposition: 21:09 Disposition: Home, Self-Care 01 Condition: Good Clinical Impression: Abdominal pain - Discharge Information Referrals: Jorge An MD [Primary Care Provider] - Forms: ED Department Discharge Additional Instructions: The following information is given to patients seen in the emergency department who are being discharged to home. This information is to outline your options for follow-up care. We provide all patients seen in our emergency department with a follow-up referral. The need for follow-up, as well as the timing and circumstances, are variable depending upon the specifics of your emergency department visit. If you don't have a primary care physician on staff, we will provide you with a referral. We always advise you to contact your personal physician following an emergency department visit to inform them of the circumstance of the visit and for follow-up with them and/or the need for any referrals to a consulting specialist. The emergency department will also refer you to a specialist when appropriate. This referral assures that you have the opportunity for follow-up care with a specialist. All of these measure are taken in an effort to provide you with optimal care, which includes your follow-up. Under all circumstances we always encourage you to contact your private physician who remains a resource for coordinating your care. When calling for follow-up care, please make the office aware that this follow-up is from your recent emergency room visit. If for any reason you are refused follow-up, please contact the [facility] Emergency Department at and asked to speak to the emergency department charge nurse. [facility] [address] [place] [address] [id number] [address] [address] Alternate tylenol and motrin as needed Follow up with primary care provider Return to ED as needed as discussed Sepsis Event Note - Evaluation Sepsis Screening Result: No Definite Risk - Focused Exam Vital Signs: Vital Signs Temp Pulse Resp BP Pulse Ox 02/16/19 19:55 96.8 F 100 16 125/81 100 Date Exam was Performed: 02/16/19 Time Exam was Performed: 21:08
[2019-02-16 21:07] LABS: BLOOD UREA NITROGEN,BUN 13 mg/dL (7.0-18.0); CARBON DIOXIDE,CO2 26.7 mmol/L (21.0-32.0); CHLORIDE,CL 105 mmol/L (98-107); GLUCOSE RANDOM 130 mg/dL (74-106); POTASSIUM,K 3.9 mmol/L (3.5-5.1); SODIUM,NA 141 mmol/L (136-145)
[2019-02-16 21:22] VITALS: BP 128/71; PULSE 84
== END 2019-02-16 21:23 | disposition home or self-care (01) ==
LOC: MW.ED 19:43
DX: R10.31 Right lower quadrant pain (principal); F17.210 Nicotine dependence, cigarettes, uncomplicated
CPT/HCPCS: 36415; 80053; 81003; 81025; 85025; 99282; 99284

== ENCOUNTER 2021-03-07 07:25 | Inpatient (IN) | payer BC ==
[2021-03-07] MEDS ORDERED: Tranexamic Acid 1,000 MG in Sodium Chloride 0.9% 100 ML IV PRN (08:27)
[2021-03-07] MEDS ORDERED: Water For Irrigation,Sterile 1,000 ML Container IRR PRN (08:27)
[2021-03-07] MEDS ORDERED: Misoprostol 200 MCG Tab PO PRN (08:27)
[2021-03-07] MEDS ORDERED: Sodium Chloride 0.9% 2.5 ML Syringe FLUSH PRN (08:27)
[2021-03-07] MEDS ORDERED: Lidocaine 1% 20 ML MDV INJECT PRN (08:27)
[2021-03-07] MEDS ORDERED: Sodium Chloride 0.9% 20 ML SDV IV PRN (08:27)
[2021-03-07] MEDS ORDERED: Butorphanol 1 MG/ML SDV IVPUSH PRN (08:27)
[2021-03-07] MEDS ORDERED: Sodium Chloride 0.9% 10 ML Syringe FLUSH PRN (08:27)
[2021-03-07] MEDS ORDERED: Carboprost Tromethamine 250 MCG/1 ML Amp IM PRN (08:27)
[2021-03-07] MEDS ORDERED: Nalbuphine 10 MG/1 ML Vial IVPUSH PRN (08:27)
[2021-03-07] MEDS ORDERED: Ampicillin 2 GM in Sodium Chloride 0.9% 100 ML IV ONE (08:27)
[2021-03-07] MEDS ORDERED: Methylergonovine 0.2 MG/1 ML Amp IM PRN (08:27)
[2021-03-07] MEDS ORDERED: Oxytocin/0.9 % Sodium Chloride 30 UNIT/500 ML BAG IV SCH ×2 (08:30→18:30)
[2021-03-07] MEDS: Lactated Ringers 1,000 ML IV SCH ×2 (09:05→15:21)
[2021-03-07] MEDS: Ampicillin 1 GM in Sodium Chloride 0.9% 50 ML IV SCH ×2 (13:18→17:00)
[2021-03-07] MEDS ORDERED: Ropivacaine HCl/PF 100 ML ONE (15:17)
[2021-03-07] MEDS ORDERED: ePHEDrine 50 MG/ML SDV IVPUSH PRN (15:33)
--- NOTE | 2021-03-07 15:33 | PCM.PREANE ---
Preanesthetic Assessment - Procedure Proposed Procedure: Labor Epidural - Anesthesia/Transfusion/Family Hx Anesthesia History: Prior Anesthesia Without Reaction (Labor Epidurals) Family History of Anesthesia Reaction: No Transfusion History: No Prior Transfusion(s) - Review of Systems General: No Symptoms Pulmonary: No Symptoms Cardiovascular: No Symptoms Gastrointestinal: No Symptoms, Other (GERD) Neurological: No Symptoms Other: Reports: None - Physical Assessment NPO Status Date: 03/07/21 NPO Status Time: 15:00 (Not NPO) Height: 1.63 m Weight: 77.111 kg ASA Class: 2 Mental Status: Alert & Oriented x3 Airway Class: Mallampati = 2 Dentition: Reports: Normal Dentition Thyro-Mental Finger Breadths: 3 Mouth Opening Finger Breadths: 3 ROM/Head Extension: Full Lungs: Clear to Auscultation, Normal Respiratory Effort Cardiovascular: Regular Rate, Regular Rhythm - Lab Values: Laboratory Last Values WBC 9.99 K/uL (4.0-11.0) 03/07/21 08:20 RBC 4.28 M/uL (4.30-5.90) L 03/07/21 08:20 Hgb 12.6 g/dL (12.0-16.0) 03/07/21 08:20 Hct 37.5 % (36.0-46.0) 03/07/21 08:20 MCV 87.6 fL (80.0-98.0) 03/07/21 08:20 MCH 29.4 pg (27.0-32.0) 03/07/21 08:20 MCHC 33.6 g/dL (31.0-37.0) 03/07/21 08:20 RDW Std Deviation 43.1 fl (28.0-62.0) 03/07/21 08:20 RDW Coeff of Niki 13 % (11.0-15.0) 03/07/21 08:20 Plt Count 253 K/uL (150-400) 03/07/21 08:20 MPV 10.20 fL (7.40-12.00) 03/07/21 08:20 Nucleated RBC % 0.0 /100WBC 03/07/21 08:20 Nucleated RBCs # 0 K/uL 03/07/21 08:20 Urine Color YELLOW 03/07/21 07:30 Urine Appearance CLEAR 03/07/21 07:30 Urine pH 7.0 (5.0-8.0) 03/07/21 07:30 Ur Specific [place] 1.010 (1.001-1.035) 03/07/21 07:30 Urine Protein NEGATIVE mg/dL (NEGATIVE) 03/07/21 07:30 Urine Glucose (UA) NEGATIVE mg/dL (NEGATIVE) 03/07/21 07:30 Urine Ketones NEGATIVE mg/dL (NEGATIVE) 03/07/21 07:30 Urine Occult Blood NEGATIVE (NEGATIVE) 03/07/21 07:30 Urine Nitrite NEGATIVE (NEGATIVE) 03/07/21 07:30 Urine Bilirubin NEGATIVE (NEGATIVE) 03/07/21 07:30 Urine Urobilinogen 0.2 EU/dL (<2.0) 03/07/21 07:30 Ur Leukocyte Esterase NEGATIVE (NEGATIVE) 03/07/21 07:30 Membrane Rupture POSITIVE 03/07/21 07:40 SARS-CoV-2 RNA (MARIANNA) NEGATIVE (NEGATIVE) 03/07/21 08:20 Blood Type O POSITIVE 03/07/21 08:20 Antibody Screen NEGATIVE 03/07/21 08:20 - Allergies Allergies/Adverse Reactions: Allergies Allergy/AdvReac Type Severity Reaction Status Date / Time No Known Allergies Allergy Verified 02/25/21 10:52 - Blood Blood Available: Yes Product(s) Available: PRBC (Type and Screen) - Anesthesia Plan Pre-Op Medication Ordered: None - Acknowledgements Anesthesia Type Planned: Epidural Pt an Appropriate Candidate for the Planned Anesthesia: Yes Alternatives and Risks of Anesthesia Discussed w Pt/Guardian: Yes Pt/Guardian Understands and Agrees with Anesthesia Plan: Yes Additional Comments: All questions answered regarding epidural PreAnesthesia Questionnaire - Past Health History Medical/Surgical History: Denies Medical/Surgical History HEENT History: Reports: None Cardiovascular History: Reports: None Respiratory History: Reports: None Gastrointestinal History: Reports: Chronic Constipation Genitourinary History: Reports: None DOCUMENTATION LIAISON History: Reports: Other OB/BYN History: LMP 01/29/19 Musculoskeletal History: Reports: None Neurological History: Reports: None Psychiatric History: Reports: Anxiety, Depression Endocrine/Metabolic History: Reports: None Hematologic History: Reports: None Immunologic History: Reports: None Oncologic (Cancer) History: Reports: None Dermatologic History: Reports: None - Infectious Disease History Infectious Disease History: Reports: Chicken Pox, Novel Coronavirus - Past Surgical History Head Surgeries/Procedures: Reports: None HEENT Surgical History: Reports: Oral Surgery Other HEENT Surgeries/Procedures: wisdom teeth removed Cardiovascular Surgical History: Reports: None Respiratory Surgical History: Reports: None GI Surgical History: Reports: None Female Surgical History: Reports: None - SUBSTANCE USE Tobacco Use Status *Q: Current Some Day Tobacco User Tobacco Use Within Last Twelve Months: Cigarettes Recreational Drug Use History: No - HOME MEDS Home Medications: Home Meds Cholecalciferol (Vitamin D3) [Vitamin D] 5,000 unit PO DAILY 02/25/21 [History] Fish Oil/[place]-3 Fatty Acids [Fish Oil 1,000 MG] 1 each PO DAILY 02/25/21 [History] Vits #93/Iron Fum/FA [ Formula Tablet] 1 each PO DAILY 02/25/21 [History] - CURRENT (IN HOUSE) MEDS Current Meds: Current Medications Butorphanol Tartrate (Butorphanol 1 Mg/Ml Sdv) 1 mg IVPUSH Q1H PRN PRN Reason: Pain (severe 7-10) Carboprost Tromethamine (Carboprost Tromethamine 250 Mcg/1 Ml Amp) 250 mcg IM ASDIRECTED PRN PRN Reason: Post Hemorrhage Lactated Ringer's (Ringers, Lactated) 1,000 mls @ 150 mls/hr IV ASDIRECTED [facility] Last Admin: 03/07/21 15:21 Dose: 150 mls/hr Documented by: Oxytocin/Sodium Chloride (Oxytocin 30 Unit In Ns 0.9% 500 Ml Premix) 30 unit in 500 mls @ 999 mls/hr IV TITRATE [facility] Tranexamic Acid 1,000 mg/ (Sodium Chloride) 110 mls @ 660 mls/hr IV ONETIME PRN PRN Reason: Bleeding Ampicillin Sodium 1 gm/ Sodium (Chloride) 50 mls @ 100 mls/hr IV Q4H [facility] Last Admin: 03/07/21 13:18 Dose: 100 mls/hr Documented by: Lidocaine HCl (Lidocaine 1% 20 Ml Mdv) 50 ml INJECT ONETIME PRN PRN Reason: Laceration repair Methylergonovine Maleate (Methylergonovine 0.2 Mg/1 Ml Amp) 0.2 mg IM ASDIRECTED PRN PRN Reason: Post Hemorrhage Misoprostol (Misoprostol 200 Mcg Tab) 200 mcg PO ONETIME PRN PRN Reason: Post Hemorrhage Nalbuphine HCl (Nalbuphine 10 Mg/1 Ml Vial) 10 mg IVPUSH Q1H PRN PRN Reason: Pain (severe 7-10) Sodium Chloride (Sodium Chloride 0.9% 10 Ml Syringe) 10 ml FLUSH ASDIRECTED PRN PRN Reason: Keep Vein Open Sodium Chloride (Sodium Chloride 0.9% 2.5 Ml Syringe) 2.5 ml FLUSH ASDIRECTED PRN PRN Reason: Keep Vein Open Sodium Chloride (Sodium Chloride 0.9% 20 Ml Sdv) 10 ml IV ASDIRECTED PRN PRN Reason: IV Use Sterile Water (Water For Irrigation,Sterile 1,000 Ml Container) 1,000 ml IRR ASDIRECTED PRN PRN Reason: delivery Discontinued Medications Ampicillin Sodium 2 gm/ Sodium (Chloride) 100 mls @ 200 mls/hr IV ONETIME ONE Stop: 03/07/21 08:56 Last Admin: 03/07/21 09:05 Dose: 200 mls/hr Documented by: Ropivacaine (Naropin 0.2%) Confirm Administered Dose 100 mls @ as directed .ROUTE .STK-MED ONE Stop: 03/07/21 15:18
--- NOTE | 2021-03-07 15:36 | PCM.SN.2 ---
- Pre-Procedure Checklist Attending Provider Aware: Yes Chart Reviewed: Yes Consent Signed: Yes Labs Reviewed: Yes VS/FHR Reviewed: Yes Patient Identification Confirmation Method: Reports: Chart Visual, Verbal Patient Pt an Appropriate Candidate for the Planned Anesthesia: Yes Alternatives and Risks of Anesthesia Discussed w Pt/Guardian: Yes - Procedure Procedure Start Date: 03/07/21 Procedure Start Time: 15:[address]: Reports: Blood Pressure, Heart Rate, SPO2 Functional IV: Yes Bolus Infused (fluid type and amount): 1000 ml LR Safety Measures: Reports: Patient Identified, Procedure Verified, Site Verified, Procedure Time Out Patient Position: Reports: Sitting Prep: Reports: Betadine x3 Local Anesthetic: Reports: Intradermal Wheal w Lidocaine 1% (3 ML) Regional Placement Level: Reports: L3-4 Needle: Reports: 17 g Touhy Approach: Reports: Midline Technique: Reports: LUIS MIGUEL Glass Syringe LUIS MIGUEL Needle Depth (cm): 6 cm Parasthesia: Reports: None Fluid Obtained: Reports: None Catheter Depth at Skin (cm): 14 cm Test Dose Time: 15:10 Test Dose Medication: Reports: Lidocaine 1.5% w Epinephrine 1:200,000 (5 ml) Test Dose Response: Reports: Negative Loading Dose Time: 15:20 (7 ml) Loading Dose Medication: Ropivicaine 0.2% Loading Dose Patient Position: Supine Continuous Infusion Start Time: 15:21 Continuous Infusion Medication: Ropivicaine 0.2% Continuous Infusion Rate: 14 Continuous Infusion PCS Bolus Option: 6 Continuous Infusion Lockout Dose (cc/hr): 15 (min lockout) Patient Position Post Placement: Reports: Supine, Supline/MIKE Post-procedure Pain Level: See Post Note Level Achieved: See Post Note VS and FHR Monitored in Unit Post Placement: Yes Procedure End Date: 03/07/21 Procedure End Time: 16:05 Procedure Comment: Sterile technique maintained throughout
[2021-03-07] MEDS ORDERED: Ropivacaine HCl/PF 200 MG in Premix Bag 1 BAG EPIDUR SCH (15:45)
--- NOTE | 2021-03-07 16:06 | PCM48HPAN ---
Post Anesthesia Note - EVALUATION WITHIN 48HRS OF ANESTHETIC Vital Signs in Normal Range: Yes Patient Participated in Evaluation: Yes Respiratory Function Stable: Yes Airway Patent: Yes Cardiovascular Function Stable: Yes Hydration Status Stable: Yes Pain Control Satisfactory: Yes Nausea and Vomiting Control Satisfactory: Yes Mental Status Recovered: Yes
[2021-03-07] MEDS ORDERED: Witch Hazel Medicated Pads 40/Jar TOP PRN (20:33)
[2021-03-07] MEDS ORDERED: Bisacodyl 10 MG Supp RECTAL PRN (20:33)
[2021-03-07] MEDS ORDERED: Benzocaine/Menthol 20%-0.5% Spray 78 GM Cannister TOP PRN (20:33)
[2021-03-07] MEDS ORDERED: Docusate Sodium 100 MG Cap PO PRN (20:33)
[2021-03-07] MEDS ORDERED: oxyCODONE 5 MG Tab PO PRN (20:33)
[2021-03-07] MEDS ORDERED: Lanolin 100% Cream 7 GM Tube TOP PRN (20:33)
--- NOTE | 2021-03-07 20:39 | PCM.DEL ---
L & D Note - General Info Date of Service: 03/07/21 Mother's Due Date: 03/14/21 - Delivery Note Labor: Augmented by Oxytocin Delivery Outcome: Livebirth Infant Delivery Method: Spontaneous Vaginal Delivery-Single Presentation: Vertex Nuchal Cord: None Anesthesia Type: Epidural Amniotic Fluid Description: Clear Episiotomy Type: None Laceration: None Placenta: Intact, Spontaneous Cord: 3 Vessels Estimated Blood Loss: 200 Resuscitation Needed: No [place]: Stimulated, Warmed, [place] Used Score 1 min: 9 Score 5 min: 9 Delivery Comments (Free Text/Narrative):: Live male infant, weight pending - General Info Date of Service: 03/07/21 - Patient Data Weight - Most Recent: 77.111 kg Lab Results Last 24 Hours: Laboratory Results - last 24 hr 03/07/21 03/07/21 03/07/21 Range/Units 07:30 07:40 08:20 WBC 9.99 (4.0-11.0) K/uL RBC 4.28 L (4.30-5.90) M/uL Hgb 12.6 (12.0-16.0) g/dL Hct 37.5 (36.0-46.0) % MCV 87.6 (80.0-98.0) fL MCH 29.4 (27.0-32.0) pg MCHC 33.6 (31.0-37.0) g/dL RDW Std Deviation 43.1 (28.0-62.0) fl RDW Coeff of Niki 13 (11.0-15.0) % Plt Count 253 (150-400) K/uL MPV 10.20 (7.40-12.00) fL Nucleated RBC % 0.0 /100WBC Nucleated RBCs # 0 K/uL Urine Color YELLOW Urine Appearance CLEAR Urine pH 7.0 (5.0-8.0) Ur Specific [place] 1.010 (1.001-1.035) Urine Protein NEGATIVE (NEGATIVE) mg/dL Urine Glucose (UA) NEGATIVE (NEGATIVE) mg/dL Urine Ketones NEGATIVE (NEGATIVE) mg/dL Urine Occult Blood NEGATIVE (NEGATIVE) Urine Nitrite NEGATIVE (NEGATIVE) Urine Bilirubin NEGATIVE (NEGATIVE) Urine Urobilinogen 0.2 (<2.0) EU/dL Ur Leukocyte Esterase NEGATIVE (NEGATIVE) Membrane Rupture POSITIVE SARS-CoV-2 RNA (MARIANNA) (NEGATIVE) Blood Type Antibody Screen 03/07/21 03/07/21 Range/Units 08:20 08:20 WBC (4.0-11.0) K/uL RBC (4.30-5.90) M/uL Hgb (12.0-16.0) g/dL Hct (36.0-46.0) % MCV (80.0-98.0) fL MCH (27.0-32.0) pg MCHC (31.0-37.0) g/dL RDW Std Deviation (28.0-62.0) fl RDW Coeff of Niki (11.0-15.0) % Plt Count (150-400) K/uL MPV (7.40-12.00) fL Nucleated RBC % /100WBC Nucleated RBCs # K/uL Urine Color Urine Appearance Urine pH (5.0-8.0) Ur Specific [place] (1.001-1.035) Urine Protein (NEGATIVE) mg/dL Urine Glucose (UA) (NEGATIVE) mg/dL Urine Ketones (NEGATIVE) mg/dL Urine Occult Blood (NEGATIVE) Urine Nitrite (NEGATIVE) Urine Bilirubin (NEGATIVE) Urine Urobilinogen (<2.0) EU/dL Ur Leukocyte Esterase (NEGATIVE) Membrane Rupture SARS-CoV-2 RNA (MARIANNA) NEGATIVE (NEGATIVE) Blood Type O POSITIVE Antibody Screen NEGATIVE Med Orders - Current: Current Medications Acetaminophen (Acetaminophen 500 Mg Tab) 1,000 mg PO Q6H PRN PRN Reason: Pain (mild 1-3) Benzocaine/Menthol (Benzocaine/Menthol 20%-0.5% [place] 78 Gm Cannister) 78 gm TOP ASDIRECTED PRN PRN Reason: Perineal Comfort Measure Bisacodyl (Bisacodyl 10 Mg Supp) 10 mg RECTAL ONETIME PRN PRN Reason: Constipation Docusate Sodium (Docusate Sodium 100 Mg Cap) 100 mg PO Q12H PRN PRN Reason: Constipation Emollient Ointment (Lanolin 100% Cream 7 Gm Tube) 0 gm TOP ASDIRECTED PRN PRN Reason: Sore Nipples Ephedrine Sulfate (Ephedrine 50 Mg/Ml Sdv) 10 mg IVPUSH Q1M PRN PRN Reason: Hypotension Lactated Ringer's (Ringers, Lactated) 1,000 mls @ 150 mls/hr IV ASDIRECTED [facility] Last Admin: 03/07/21 15:21 Dose: 150 mls/hr Documented by: Ropivacaine 200 mg/ Premix 100 mls @ 0 mls/hr EPIDUR ASDIRECTED [facility] Oxytocin/Sodium Chloride (Oxytocin 30 Unit In Ns 0.9% 500 Ml Premix) 30 unit in 500 mls @ 2 mls/hr IV TITRATE TELL[facility]; Protocol Last Infusion: 03/07/21 19:08 Dose: 4 munits/min, 4 mls/hr Documented by: Ibuprofen (Ibuprofen 800 Mg Tab) 800 mg PO Q8H PRN PRN Reason: Cramping Miscellaneous Medication (Phenylephrine Hcl In 0.9% Nacl 1 Mg/10 Ml Syringe) 0.1 mg IVPUSH Q1M PRN PRN Reason: Hypotension Oxycodone HCl (Oxycodone 5 Mg Tab) 5 mg PO Q2H PRN PRN Reason: Pain (severe 7-10) Sodium Chloride (Sodium Chloride 0.9% 10 Ml Syringe) 10 ml FLUSH ASDIRECTED PRN PRN Reason: Keep Vein Open Sodium Chloride (Sodium Chloride 0.9% 2.5 Ml Syringe) 2.5 ml FLUSH ASDIRECTED PRN PRN Reason: Keep Vein Open Sodium Chloride (Sodium Chloride 0.9% 20 Ml Sdv) 10 ml IV ASDIRECTED PRN PRN Reason: IV Use Sterile Water (Water For Irrigation,Sterile 1,000 Ml Container) 1,000 ml IRR ASDIRECTED PRN PRN Reason: delivery Witch Allyson (Witch Allyson Medicated Pads 40/Jar) 1 pad TOP ASDIRECTED PRN PRN Reason: comfort care Discontinued Medications Butorphanol Tartrate (Butorphanol 1 Mg/Ml Sdv) 1 mg IVPUSH Q1H PRN PRN Reason: Pain (severe 7-10) Carboprost Tromethamine (Carboprost Tromethamine 250 Mcg/1 Ml Amp) 250 mcg IM ASDIRECTED PRN PRN Reason: Post Hemorrhage Oxytocin/Sodium Chloride (Oxytocin 30 Unit In Ns 0.9% 500 Ml Premix) 30 unit in 500 mls @ 999 mls/hr IV TITRATE [facility] Tranexamic Acid 1,000 mg/ (Sodium Chloride) 110 mls @ 660 mls/hr IV ONETIME PRN PRN Reason: Bleeding Ampicillin Sodium 2 gm/ Sodium (Chloride) 100 mls @ 200 mls/hr IV ONETIME ONE Stop: 03/07/21 08:56 Last Admin: 03/07/21 09:05 Dose: 200 mls/hr Documented by: Ampicillin Sodium 1 gm/ Sodium (Chloride) 50 mls @ 100 mls/hr IV Q4H [facility] Last Admin: 03/07/21 17:00 Dose: 100 mls/hr Documented by: Ropivacaine (Naropin 0.2%) Confirm Administered Dose 100 mls @ as directed .ROUTE .STK-MED ONE Stop: 03/07/21 15:18 Lidocaine HCl (Lidocaine 1% 20 Ml Mdv) 50 ml INJECT ONETIME PRN PRN Reason: Laceration repair Methylergonovine Maleate (Methylergonovine 0.2 Mg/1 Ml Amp) 0.2 mg IM ASDIRECTED PRN PRN Reason: Post Hemorrhage Misoprostol (Misoprostol 200 Mcg Tab) 200 mcg PO ONETIME PRN PRN Reason: Post Hemorrhage Nalbuphine HCl (Nalbuphine 10 Mg/1 Ml Vial) 10 mg IVPUSH Q1H PRN PRN Reason: Pain (severe 7-10) - Exam Urinary Catheter Total Time: 0Days 0Hours - Problem List & Annotations (1) Vaginal delivery SNOMED Code(s): 884147665 Code(s): O80 - ENCOUNTER FOR FULL-TERM UNCOMPLICATED DELIVERY Status: Acute Current Visit: No - Problem List Review Problem List Initiated/Reviewed/Updated: Yes - My Orders Last 24 Hours: My Active Orders 03/07/21 07:26 Patient Status [ADT] Routine Up ad [place]a [RC] ASDIRECTED Vital Signs [RC] PER UNIT ROUTINE Resuscitation Status Routine 03/07/21 08:20 RPR (SYPHILIS SERO) W/ RFLX [REF] Routine 03/07/21 08:27 Notify Provider Vital Signs [RC] ASDIRECTED Sodium Chloride 0.9% [Normal Saline] 10 ml IV ASDIRECTED PRN Sodium Chloride 0.9% [Saline Flush] 10 ml FLUSH ASDIRECTED PRN Sodium Chloride 0.9% [Saline Flush] 2.5 ml FLUSH ASDIRECTED PRN Water For Irrigation,Sterile [Sterile Water for Irrigation] 1,000 ml IRR ASDIRECTED PRN 03/07/21 08:28 Patient Status [ADT] Routine May Shower [RC] ASDIRECTED Notify Provider [RC] PRN Vital Signs [RC] PER UNIT ROUTINE Peripheral IV Insertion Adult [OM.PC] Routine 03/07/21 08:30 Lactated Ringers [Ringers, Lactated] 1,000 ml IV ASDIRECTED 03/07/21 Dinner Regular Diet [DIET] 03/07/21 18:30 Oxytocin/0.9 % Sodium Chloride [Oxytocin 30 Unit in NS 0.9% 500 ML Premix] 30 unit in 500 ml IV TITRATE 03/07/21 20:33 Patient Status [ADT] Routine May Shower [RC] ASDIRECTED Notify Provider Vital Signs [RC] ASDIRECTED Up ad Lea [RC] ASDIRECTED Vital Signs [RC] PER UNIT ROUTINE Acetaminophen [Tylenol Extra Strength] 1,000 mg PO Q6H PRN Benzocaine/Menthol [Dermoplast Pain Relief 20%-0.5% [place]] 78 gm TOP ASDIRECTED PRN Docusate Sodium [Colace] 100 mg PO Q12H PRN Ibuprofen [Motrin] 800 mg PO Q8H PRN Lanolin [Lansinoh HPA] See Dose Instructions TOP ASDIRECTED PRN bisacodyL [Dulcolax] 10 mg RECTAL ONETIME PRN oxyCODONE 5 mg PO Q2H PRN witch Allyson [Tucks] 1 pad TOP ASDIRECTED PRN Assess Lochia [WOMSER] Per Unit Routine Assess Uterine Involution [WOMSER] Per Unit Routine Breast Pump [WOMSER] Per Unit Routine Peripheral IV Discontinue [OM.PC] Routine 03/07/21 20:34 Ice Therapy [OM.PC] Per Unit Routine Perineal Care [OM.PC] Per Unit Routine Sitz Bath [OM.PC] Per Unit Routine 03/07/21 20:35 Cooling Warming Measures [RC] ASDIRECTED 03/08/21 05:11 HEMOGLOBIN/HEMATOCRIT,HH [HEME] Timed - Assessment Assessment:: 30yo s/p at 39w0d - Plan Plan:: Admit to unit for routine cares. O+, Rubella immune, GBS+ - received 3 doses Ampicillin prior to delivery.
[2021-03-07] MEDS: Ibuprofen 800 MG Tab PO PRN (21:38)
--- NOTE | 2021-03-07 21:39 | OR ---
SURGEON: Madie Ocampo MD DATE OF PROCEDURE: 03/07/2021 PREOPERATIVE DIAGNOSES: 1. 30-year-old G4, P3-0-0-3, at 39 weeks and 0 day gestation. 2. Prelabor rupture of membranes. 3. Group B streptococcus negative. POSTOPERATIVE DIAGNOSES: 1. 30-year-old G4, P4-0-0-4, at 39 weeks and 0 day gestation. 2. Prelabor rupture of membranes. 3. Group B streptococcus negative. PROCEDURE: Spontaneous vaginal delivery. PRIMARY SURGEON: Madie Ocampo MD ANESTHESIA: Epidural. ESTIMATED BLOOD LOSS: 200 mL. FINDINGS: Live male in cephalic presentation. score of 9 and 9 at one and five minutes respectively. Weight pending. Perineum intact. Placenta with three-vessel cord. INDICATION FOR PROCEDURE: This is a 30-year-old G4, P3-0-0-3, who presented at 39 weeks and 0 day gestation complaining of leakage of fluids. Upon presentation, rupture of membranes was confirmed with AmniSure. Ampicillin was started for GBS prophylaxis and she was admitted to Labor and Delivery for expectant management of rupture of membranes. After 3 hours of no cervical change, she began using the breast pump for nipple stimulation to release oxytocin. This allowed her to change to 4 to 5 cm dilated, and she received an epidural. Her contractions spaced out again and then would flower picker temporarily with the breast pump, however, she was not making cervical change. At this time, Pitocin was started for augmentation of labor. She quickly progressed to complete cervical dilation and I was called to the room. DESCRIPTION OF PROCEDURE: I arrived to the room with the cervix completely dilated and the infant's head at +4 station. Over the next two contractions, the patient pushed and delivered a live male infant. The head was delivered followed quickly by the shoulders and remainder of the body. The was placed on maternal abdomen. After 60 seconds, the cord was clamped and cut. The perineum was inspected and abrasions were noted and were hemostatic without repair. Cord blood was obtained. The placenta was then delivered intact and with three-vessel cord via the [place]- Martinez maneuver. Fundus was firm below the umbilicus. There was minimal bleeding. The patient and tolerated the delivery well. [id number] / MODL /[id number] MTDD
[2021-03-08] MEDS: Acetaminophen 500 MG Tab PO PRN ×2 (01:57→13:03)
--- NOTE | 2021-03-08 08:41 | PCM.PNPP ---
- General Info Date of Service: 03/08/21 Subjective Update: Patient tired, but otherwise doing well. Functional Status: Reports: Pain Controlled, Tolerating Diet, Ambulating, Urinating - Review of Systems General: Reports: No Symptoms HEENT: Reports: No Symptoms Pulmonary: Reports: No Symptoms Cardiovascular: Reports: No Symptoms Gastrointestinal: Reports: No Symptoms Genitourinary: Reports: No Symptoms Musculoskeletal: Reports: No Symptoms Skin: Reports: No Symptoms Neurological: Reports: No Symptoms Psychiatric: Reports: No Symptoms - Patient Data Vital Signs - Most Recent: Last Vital Signs Temp 36.7 C 03/08/21 07:26 Pulse 71 03/08/21 07:26 Resp 15 03/08/21 07:26 BP 111/65 03/08/21 07:26 Pulse Ox 97 03/08/21 07:26 Weight - Most Recent: 77.111 kg Lab Results - Last 24 Hours: Laboratory Results - last 24 hr 03/07/21 03/07/21 03/07/21 Range/Units 08:20 08:20 08:20 WBC 9.99 (4.0-11.0) K/uL RBC 4.28 L (4.30-5.90) M/uL Hgb 12.6 (12.0-16.0) g/dL Hct 37.5 (36.0-46.0) % MCV 87.6 (80.0-98.0) fL MCH 29.4 (27.0-32.0) pg MCHC 33.6 (31.0-37.0) g/dL RDW Std Deviation 43.1 (28.0-62.0) fl RDW Coeff of Niki 13 (11.0-15.0) % Plt Count 253 (150-400) K/uL MPV 10.20 (7.40-12.00) fL Nucleated RBC % 0.0 /100WBC Nucleated RBCs # 0 K/uL SARS-CoV-2 RNA (MARIANNA) NEGATIVE (NEGATIVE) Blood Type O POSITIVE Antibody Screen NEGATIVE 03/08/21 Range/Units 07:33 WBC (4.0-11.0) K/uL RBC (4.30-5.90) M/uL Hgb 11.8 L (12.0-16.0) g/dL Hct 35.3 L (36.0-46.0) % MCV (80.0-98.0) fL MCH (27.0-32.0) pg MCHC (31.0-37.0) g/dL RDW Std Deviation (28.0-62.0) fl RDW Coeff of Niki (11.0-15.0) % Plt Count (150-400) K/uL MPV (7.40-12.00) fL Nucleated RBC % /100WBC Nucleated RBCs # K/uL SARS-CoV-2 RNA (MARIANNA) (NEGATIVE) Blood Type Antibody Screen Med Orders - Current: Current Medications Acetaminophen (Acetaminophen 500 Mg Tab) 1,000 mg PO Q6H PRN PRN Reason: Pain (mild 1-3) Last Admin: 03/08/21 01:57 Dose: 1,000 mg Documented by: Benzocaine/Menthol (Benzocaine/Menthol 20%-0.5% [place] 78 Gm Cannister) 78 gm TOP ASDIRECTED PRN PRN Reason: Perineal Comfort Measure Bisacodyl (Bisacodyl 10 Mg Supp) 10 mg RECTAL ONETIME PRN PRN Reason: Constipation Docusate Sodium (Docusate Sodium 100 Mg Cap) 100 mg PO Q12H PRN PRN Reason: Constipation Emollient Ointment (Lanolin 100% Cream 7 Gm Tube) 0 gm TOP ASDIRECTED PRN PRN Reason: Sore Nipples Ephedrine Sulfate (Ephedrine 50 Mg/Ml Sdv) 10 mg IVPUSH Q1M PRN PRN Reason: Hypotension Lactated Ringer's (Ringers, Lactated) 1,000 mls @ 150 mls/hr IV ASDIRECTED [facility] Last Admin: 03/07/21 15:21 Dose: 150 mls/hr Documented by: Ropivacaine 200 mg/ Premix 100 mls @ 0 mls/hr EPIDUR ASDIRECTED [facility] Oxytocin/Sodium Chloride (Oxytocin 30 Unit In Ns 0.9% 500 Ml Premix) 30 unit in 500 mls @ 2 mls/hr IV TITRATE [facility]; Protocol Last Infusion: 03/07/21 20:17 Dose: 500 munits/min, 500 mls/hr Documented by: Ibuprofen (Ibuprofen 800 Mg Tab) 800 mg PO Q8H PRN PRN Reason: Cramping Last Admin: 03/07/21 21:38 Dose: 800 mg Documented by: Miscellaneous Medication (Phenylephrine Hcl In 0.9% Nacl 1 Mg/10 Ml Syringe) 0.1 mg IVPUSH Q1M PRN PRN Reason: Hypotension Oxycodone HCl (Oxycodone 5 Mg Tab) 5 mg PO Q2H PRN PRN Reason: Pain (severe 7-10) Last Admin: 03/08/21 02:46 Dose: 5 mg Documented by: Sodium Chloride (Sodium Chloride 0.9% 10 Ml Syringe) 10 ml FLUSH ASDIRECTED PRN PRN Reason: Keep Vein Open Sodium Chloride (Sodium Chloride 0.9% 2.5 Ml Syringe) 2.5 ml FLUSH ASDIRECTED PRN PRN Reason: Keep Vein Open Sodium Chloride (Sodium Chloride 0.9% 20 Ml Sdv) 10 ml IV ASDIRECTED PRN PRN Reason: IV Use Sterile Water (Water For Irrigation,Sterile 1,000 Ml Container) 1,000 ml IRR ASDIRECTED PRN PRN Reason: delivery Witch Allyson (Witch Allyson Medicated Pads 40/Jar) 1 pad TOP ASDIRECTED PRN PRN Reason: comfort care Discontinued Medications Butorphanol Tartrate (Butorphanol 1 Mg/Ml Sdv) 1 mg IVPUSH Q1H PRN PRN Reason: Pain (severe 7-10) Carboprost Tromethamine (Carboprost Tromethamine 250 Mcg/1 Ml Amp) 250 mcg IM ASDIRECTED PRN PRN Reason: Post Hemorrhage Oxytocin/Sodium Chloride (Oxytocin 30 Unit In Ns 0.9% 500 Ml Premix) 30 unit in 500 mls @ 999 mls/hr IV TITRATE [facility] Tranexamic Acid 1,000 mg/ (Sodium Chloride) 110 mls @ 660 mls/hr IV ONETIME PRN PRN Reason: Bleeding Ampicillin Sodium 2 gm/ Sodium (Chloride) 100 mls @ 200 mls/hr IV ONETIME ONE Stop: 03/07/21 08:56 Last Admin: 03/07/21 09:05 Dose: 200 mls/hr Documented by: Ampicillin Sodium 1 gm/ Sodium (Chloride) 50 mls @ 100 mls/hr IV Q4H [facility] Last Admin: 03/07/21 17:00 Dose: 100 mls/hr Documented by: Ropivacaine (Naropin 0.2%) Confirm Administered Dose 100 mls @ as directed .ROUTE .STK-MED ONE Stop: 03/07/21 15:18 Lidocaine HCl (Lidocaine 1% 20 Ml Mdv) 50 ml INJECT ONETIME PRN PRN Reason: Laceration repair Methylergonovine Maleate (Methylergonovine 0.2 Mg/1 Ml Amp) 0.2 mg IM ASDIRECTED PRN PRN Reason: Post Hemorrhage Misoprostol (Misoprostol 200 Mcg Tab) 200 mcg PO ONETIME PRN PRN Reason: Post Hemorrhage Nalbuphine HCl (Nalbuphine 10 Mg/1 Ml Vial) 10 mg IVPUSH Q1H PRN PRN Reason: Pain (severe 7-10) - Infant Interaction Disposition, : in Room with Family Infant Interaction: Holding Feeding: Breastfed Infant; Nursed Well Support Person: - Recovery Exam Fundal Tone: Firm Fundal Level: 1 Fingerbreadths Below Umbilicus Fundal Placement: Midline Lochia Amount: Scant Bladder Status: Voiding Urinary Elimination: Voided - Exam General: Alert, Oriented Neck: Supple Lungs: Normal Respiratory Effort GI/Abdominal Exam: Soft, Non-Tender, No Distention Extremities: Non-Tender, No Pedal Edema Skin: Warm, Dry, Intact Neurological: No New Focal Deficit Psy/Mental Status: Alert, Normal Affect, Normal Mood - Problem List & Annotations (1) Vaginal delivery SNOMED Code(s): 155392029 Code(s): O80 - ENCOUNTER FOR FULL-TERM UNCOMPLICATED DELIVERY Status: Acute Current Visit: No - Problem List Review Problem List Initiated/Reviewed/Updated: Yes - My Orders Last 24 Hours: My Active Orders 03/07/21 08:20 RPR (SYPHILIS SERO) W/ RFLX [REF] Routine 03/07/21 08:27 Notify Provider Vital Signs [RC] ASDIRECTED Sodium Chloride 0.9% [Normal Saline] 10 ml IV ASDIRECTED PRN Sodium Chloride 0.9% [Saline Flush] 10 ml FLUSH ASDIRECTED PRN Sodium Chloride 0.9% [Saline Flush] 2.5 ml FLUSH ASDIRECTED PRN Water For Irrigation,Sterile [Sterile Water for Irrigation] 1,000 ml IRR ASDIRECTED PRN 03/07/21 08:28 Patient Status [ADT] Routine May Shower [RC] ASDIRECTED Notify Provider [RC] PRN Vital Signs [RC] PER UNIT ROUTINE Peripheral IV Insertion Adult [OM.PC] Routine 03/07/21 08:30 Lactated Ringers [Ringers, Lactated] 1,000 ml IV ASDIRECTED 03/07/21 Dinner Regular Diet [DIET] 03/07/21 18:30 Oxytocin/0.9 % Sodium Chloride [Oxytocin 30 Unit in NS 0.9% 500 ML Premix] 30 unit in 500 ml IV TITRATE 03/07/21 20:33 Patient Status [ADT] Routine May Shower [RC] ASDIRECTED Notify Provider Vital Signs [RC] ASDIRECTED Up ad Lea [RC] ASDIRECTED Vital Signs [RC] PER UNIT ROUTINE Acetaminophen [Tylenol Extra Strength] 1,000 mg PO Q6H PRN Benzocaine/Menthol [Dermoplast Pain Relief 20%-0.5% [place]] 78 gm TOP ASDIRECTED PRN Docusate Sodium [Colace] 100 mg PO Q12H PRN Ibuprofen [Motrin] 800 mg PO Q8H PRN Lanolin [Lansinoh HPA] See Dose Instructions TOP ASDIRECTED PRN bisacodyL [Dulcolax] 10 mg RECTAL ONETIME PRN oxyCODONE 5 mg PO Q2H PRN witch Allyson [Tucks] 1 pad TOP ASDIRECTED PRN Assess Lochia [WOMSER] Per Unit Routine Assess Uterine Involution [WOMSER] Per Unit Routine Breast Pump [WOMSER] Per Unit Routine Peripheral IV Discontinue [OM.PC] Routine 03/07/21 20:34 Ice Therapy [OM.PC] Per Unit Routine Perineal Care [OM.PC] Per Unit Routine Sitz Bath [OM.PC] Per Unit Routine 03/08/21 08:38 Ready for Discharge [RC] PER UNIT ROUTINE - Assessment Assessment:: 30yo s/p at 39w0d, PPD#1 - Plan Plan:: Contniue routine cares. O+, Rubella immune, GBS+ - received 3 doses Ampicillin prior to delivery. Desires discharge home today. Reviewed discharge instructions/precautions. All questions answered.
[2021-03-08] MEDS: Ibuprofen 800 MG Tab PO PRN (08:56)
[2021-03-08 19:16] VITALS: BP 110/75; PULSE 75
--- NOTE | 2021-03-10 09:41 | PCM48HPAN ---
Post Anesthesia Note - EVALUATION WITHIN 48HRS OF ANESTHETIC Vital Signs in Normal Range: Yes Patient Participated in Evaluation: Yes Respiratory Function Stable: Yes Airway Patent: Yes Cardiovascular Function Stable: Yes Hydration Status Stable: Yes Pain Control Satisfactory: Yes Nausea and Vomiting Control Satisfactory: Yes Mental Status Recovered: Yes Vital Signs: Last Vital Signs Temp 98 F 03/08/21 16:00 Pulse 75 03/08/21 16:00 Resp 16 03/08/21 16:00 BP 110/75 03/08/21 16:00 Pulse Ox 97 03/08/21 16:00
== END 2021-03-08 18:44 | disposition home or self-care (01) | DRG 560 ==
LOC: MW.OB 07:25 → MW.OBCHECK 07:25 → MW.OB 08:28 → OBSVTOIN 20:33 → MW.OB 03-08 02:58
PROVIDERS: ADMIT Obstetrics & Gynecology; ATTEND Obstetrics & Gynecology
PROC: 10E0XZZ Delivery of Products of Conception, External Approach (ICD-10-PCS; principal; 2021-03-07)
PROC: 3E0R3BZ Introduction of Anesthetic Agent into Spinal Canal, Percutaneous Approach (ICD-10-PCS; 2021-03-07)
PROC: 00HU33Z Insertion of Infusion Device into Spinal Canal, Percutaneous Approach (ICD-10-PCS; 2021-03-07)
DX: O42.92 Full-term premature rupture of membranes, unspecified as to length of time between rupture and onset of labor (principal); Z3A.39 39 weeks gestation of pregnancy; Z37.0 Single live birth; Z20.822 Contact with and (suspected) exposure to COVID-19
CPT/HCPCS: 01967; 36415; 51702; 59025; 59409; 81003; 84112; 85014; 85018; 85027; 86592; 86850; 86900; 86901; A9270-GY; J0290; J2590; J2795; J7120; U0002

== ENCOUNTER 2024-08-26 10:50 | Emergency (ER) | payer MEDICAID ==
[2024-08-26 11:10] VITALS: BP 120/78; PULSE 72
== END 2024-08-26 14:09 | disposition home or self-care (01) ==
LOC: MW.ED 10:50
DX: M79.661 Pain in right lower leg (principal)
CPT/HCPCS: 93970; 93970-26; 99282; 99283

== ENCOUNTER 2024-11-22 09:54 | Day surgery (SDC) | payer MEDICAID ==
[~2024-11-22 09:54] MED LIST: Sodium Chloride 0.9% 10 ML Syringe FLUSH PRN; Sodium Chloride 0.9% 2.5 ML Syringe FLUSH PRN
[2024-11-22] MEDS: Lactated Ringers 1,000 ML IV SCH (10:35)
[2024-11-22] MEDS ORDERED: Propofol 200 MG/20 ML SDV ONE ×2 (11:08→11:19)
[2024-11-22 13:23] VITALS: BP 101/63; PULSE 57
== END 2024-11-22 12:33 | disposition home or self-care (01) ==
LOC: MW.SDS 09:54
PROVIDERS: ATTEND Surgery
DX: K22.89 Other specified disease of esophagus (principal); K63.89 Other specified diseases of intestine; K62.89 Other specified diseases of anus and rectum; K59.09 Other constipation; F17.200 Nicotine dependence, unspecified, uncomplicated
CPT/HCPCS: 43239; 45380; 81025; J1596; J2003; J2704; J7120; J7999; 00813; J2371